=== PATIENT | male | born 1985 | race Two or more races ===

== ENCOUNTER 2017-03-24 09:23 | Emergency (ER) | payer BC, OTHER ==
[~2017-03-24] VITALS: Ht 182.9 cm; Wt 120.2 kg
[2017-03-24 09:31] VITALS: BP 124/79
[2017-03-24] MEDS ORDERED: IBUPROFEN 600 MG TAB PO ONE (11:30)
== END 2017-03-24 12:46 | disposition home or self-care (01) ==
LOC: EDBD 09:23 → EDUNIT# 09:23 → ER 09:23
DX: S16.1XXA Strain of muscle, fascia and tendon at neck level, initial encounter (principal); V43.52XA Car driver injured in collision with other type car in traffic accident, initial encounter; Y93.89 Activity, other specified; Y92.89 Other specified places as the place of occurrence of the external cause; Y99.8 Other external cause status
CPT/HCPCS: 72040